=== PATIENT | male | born 1990 | race Caucasian/White ===

== ENCOUNTER 2024-09-03 08:52 | Emergency (ER) | payer OTHER ==
[~2024-09-03] VITALS: Ht 185.4 cm; Wt 140.6 kg
[~2024-09-03 08:52] MED LIST: IBUP800 PO; ONDA4ODT MM; TAMS.4ER PO
[2024-09-03] MEDS ORDERED: OMEP20ER PO (09:23)
[2024-09-03] MEDS ORDERED: TRAM50 PO (09:23)
[2024-09-03] MEDS ORDERED: NEURONTIN300 MG PO (09:23)
[2024-09-03] MEDS ORDERED: ESCI10 PO (09:24)
[2024-09-03] MEDS ORDERED: Mag Hydrox/AL Hydrox/Simeth 30 ML UDC PO ONE (09:45)
[2024-09-03] MEDS ORDERED: HyDROXyzine HCl 25 MG Tab PO ONE (09:45)
[2024-09-03 09:55] LABS: BASOPHILS ABSOLUTE AUTO 0.02 K/mm3 (0.00-0.23); BASOPHILS PERCENT AUTO 0 % (0-2); EOSINOPHILS ABSOLUTE AUTO 0.06 K/mm3 (0.00-0.68); EOSINOPHILS PERCENT AUTO 1 % (0-6); Hemoglobin 15.4 g/dL (13.5-17.5); IMMATURE GRAN ABSOLUTE AUTO 0.02 K/mm3 (0.00-0.10); IMMATURE GRAN PERCENT AUTO 0 % (0-1); LYMPHOCYTES ABSOLUTE AUTO 1.83 K/mm3 (0.84-5.20); LYMPHOCYTES PERCENT AUTO 26 % (21-46); MONOCYTES ABSOLUTE AUTO 0.41 K/mm3 (0.16-1.47); MONOCYTES PERCENT AUTO 6 % (4-13); Mean Corpuscular HGB 29.2 pg (26.0-34.0); Mean Corpuscular Volume 83 fL (80-100); Mean Platelet Volume 9.3 fL (9.1-12.4); NEUTROPHILS ABSOLUTE AUTO 4.59 K/mm3 (1.96-9.15); NEUTROPHILS PERCENT AUTO 66 % (41-73); Platelet Count 291 K/mm3 (150-400); RDW Coefficient Variation 12.7 % (11.7-14.2); RDW Standard Deviation 38.5 fL (35.1-46.3); Red Blood Cell Count 5.28 M/mm3 (4.30-5.90); White Blood Cell Count 6.93 K/mm3 (4.00-11.30)
[2024-09-03 10:08] LABS: Albumin, Blood 3.8 g/dL (3.4-5.0); Albumin/Globulin Ratio 0.9 (0.8-1.8); Bilirubin, Total 0.4 mg/dL (0.1-1.0); Bun/Creatinine Ratio 15.9 (12.0-20.0); Calcium, Blood 9.2 mg/dL (8.5-10.1); Creatinine, Blood 1.07 mg/dL (0.60-1.20); Globulin, Blood 4.1 g/dL (2.2-4.0); Total Protein, Blood 7.9 g/dL (6.4-8.2)
[2024-09-03] MEDS ORDERED: HYDHCL25 PO (11:57)
[2024-09-03 12:06] VITALS: BP 146/97
== END 2024-09-03 12:08 | disposition home or self-care (01) ==
LOC: ER 08:52
PROVIDERS: Student in an Organized Health Care Education/Training Program
DX: K21.9 Gastro-esophageal reflux disease without esophagitis (principal); F41.9 Anxiety disorder, unspecified; R20.2 Paresthesia of skin; J45.909 Unspecified asthma, uncomplicated; Z79.899 Other long term (current) drug therapy
CPT/HCPCS: 71046; 80053; 84484; 85025; 93005; 93010; 99284-25; A9270